=== PATIENT | female | born 1975 | race Caucasian/White ===

== ENCOUNTER 2022-10-29 00:30 | Inpatient (IN) | payer SELFPAY ==
[2022-10-29] VITALS (51 sets, daily range): BP systolic 97–145; BP diastolic 47–91; PULSE 70–97; RESP 16–20; TEMP 35.9–37.1; O2SAT 94–100; BMI 32.5; BMI 31.6
--- NOTE | 2022-10-29 01:00 | ED_ITS ---
HPI - General Adult General Chief complaint: Shortness of Breath/Dyspnea Stated complaint: shortness of breath Time Seen by Provider: 10/29/22 00:59 History of Present Illness HPI narrative: Pt aox4, ABCs intact. Patient arrives for evaluation of shortness of breath that has progressed over the past couple of weeks . 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 Upon ambulation patient starts to become short of breath. When she goes from laying to sitting up patient becomes dizzy. Patient also having pain under her left breast. 47-year-old woman presenting to the emergency department apparently on advice of an PAYMENT ANALYST friend and ?my old man?, for concern of increasing shortness of breath particularly with exertion. Over the last week or so has found herself increasingly short of breath by the time she walks 50 ft. That distance has shortened and now was alarmed her today was directly with movement became short of breath. She does smoke couple packs of [place] daily. Has smoked for about 30 years. She gets lightheaded now when she goes from lying to sitting position. Has been experiencing some chest pressure on exertion along with the shortness of breath. Not so much of pain she says. Then resolves to feeling a sensation of tightness maybe like a hug. She does have some swelling in her legs that occurs intermittently in different locations. Some of this is related to bad right knee in which she has had a few surgeries. 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 On exam I do note a murmur. She has not noted a cardiac murmur prior. No fever. No new cough. Related Data Previous Rx's Medication Instructions Recorded ferrous sulfate 325 mg (65 mg 325 mg PO DAILY #30 tabs 10/30/22 iron) tablet omeprazole 20 mg capsule,delayed 20 mg PO BID #60 caps 10/30/22 release Allergies Allergy/AdvReac Type Severity Reaction Status Date / Time morphine Allergy Verified 10/29/22 02:02 Review of Systems Status of ROS: Reports: 6 or more systems reviewed and unremarkable except as noted in History and below PFSH PFSH Medical History Microcytic anemia ?D50.9 - Iron deficiency anemia, unspecified (ICD-10) Tobacco use ?Z72.0 - Tobacco use (ICD-10) Surgical History (Updated 10/29/22 @ 10:21 by Isamar Godinez MD) Hx of cholecystectomy ?Z90.49 - Acquired absence of other specified parts of digestive tract (ICD- 10) History of knee surgery ?Z98.890 - Other specified postprocedural states (ICD-10) H/O hysterectomy with oophorectomy Family History (Updated 10/29/22 @ 10:20 by Isamar Godinez MD) Other Breast cancer Social History (Updated 10/29/22 @ 10:12 by Isamar Godinez MD) Narrative: Patient's home base is in [place], although she primarily lives in her truck on the road. Her partner is in [place]. She has 3 children. She smokes approximately 2 packs per day of cigarettes, also vapes. No alcohol use. Typically drinks 6-10 20oz bottles of Mountain Dew per day, recently transitioned to sweet tea. What is your current living situation?: I presently have a place to live Problems where you live: no known problems Problems where you live details: N/A In the past 12 months, utilities in danger of being shut off: no In the past 12 mos, have been you worried that your food would run out before you had money to buy more?: never true In the past 12 mos, the food you bought just didn't last and you didn't have money to buy more?: never true Highest level of school completed/degree received: Bachelor's degree Smoking Status: Heavy tobacco smoker What tobacco products do you use: cigarettes Smoking packs per day: 2 Smoking cigarettes per day: 40.0 Smoking quit date/years: >15 years ago and pipe Do you use any of these nicotine containing products: None Second hand tobacco smoke exposure: Yes How often do you have a drink containing alcohol: never AUDIT-C Alcohol total score: 0 Non-prescribed substance use: denies use Caffeine: No How often does anyone, including family, friends and others, physically hurt you : never How often does anyone, including family, friends and others, insult or talk down to you: never How often does anyone, including family, friends and others, threaten you with harm: never How often does anyone, including family, friends and others, scream or curse at you: sometimes service: No Exam Narrative: Exam Narrative: Pleasant. Slightly gravelly voice consistent with smoking. Small cigarette smoke. Skin is warm and dry. Pale. Lower extremities at this time are without edema. Extremities are well perfused. She is moving all extremities without difficulty. Lungs appear to be clear. While breathing with this exam she appears to become lightheaded. I do not appreciate JVD. Cranial nerves 2-12 are intact. Heart in a regular rate and rhythm. Has a mid systolic murmur loudest at the left sternal border. 2/6. Abdomen is soft and nontender. Pain is not reproducible to palpation of the chest wall. Const: Vital Signs, click to edit/add: Vital Signs - 24 hr 10/29/22 00:41 10/29/22 00:57 10/29/22 01:00 Temperature 98.8 F Pulse Rate 84 84 Pulse Rate [Pulse Oximeter] 85 Respiratory Rate 20 Blood Pressure [Ri ght Upper Arm] 145/82 H Pulse Oximetry 99 97 97 Oxygen Delivery Me thod Room Air 10/29/22 01:15 10/29/22 01:30 10/29/22 01:55 Temperature Pulse Rate 89 80 83 Pulse Rate [Pulse Oximeter] Respiratory Rate Blood Pressure [Ri ght Upper Arm] Pulse Oximetry 100 99 97 Oxygen Delivery Me thod Documenting provider has reviewed patient's vital signs: yes Course Course Hospital Course: Cristine is a very pleasant 47-year-old female who presented to the hospital for dyspnea, found to have a hemoglobin of 4.6. She received total of 4 units PRBCs, felt significantly improved, hemoglobin 9.2 upon discharge. EGD during stay exhibited gastritis (likely iatrogenic; patient on high doses of ASA and Ibuprofen prior to admission). Patient takes high doses of NSAIDs for R knee pain (history of injuries). Requested injection during stay, as she will not be able to take NSAIDs upon discharge. After consent obtained, lateral aspect of right knee was injected under sterile conditions with 40mg of Kenalog, 1mL of 1% lidocaine, 1 mL of 0.25% bupivacaine; patient tolerated procedure well. 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 We discussed the importance of finding a PCP to monitor her hemoglobin. She will be discharged on omeprazole and supplemental iron, return precautions reviewed. Patient verbalized understanding and is appropriate for discharge on 10/30/22. Vital Signs Vital signs: Initial Vital Signs Temperature 98.8 F 10/29/22 00:41 Temperature Source Temporal Artery Scan 10/29/22 00:41 Pulse Rate 85 10/29/22 00:41 Pulse Rhythm Regular 10/29/22 00:41 Respiratory Rate 20 10/29/22 00:41 Blood Pressure 145/82 H 10/29/22 00:41 Blood Pressure Mean 103 10/29/22 00:41 Pulse Oximetry 99 10/29/22 00:41 Oxygen Delivery Method Room Air 10/29/22 00:41 Vital Signs Temperature 98.8 F 10/29/22 00:41 Pulse Rate 85 10/29/22 00:41 Respiratory Rate 20 10/29/22 00:41 Blood Pressure 145/82 H 10/29/22 00:41 Pulse Oximetry 99 10/29/22 00:41 Oxygen Delivery Method Room Air 10/29/22 00:41 Temperature 99.0 F 10/30/22 10:52 Pulse Rate 88 10/30/22 10:52 Respiratory Rate 16 10/30/22 10:52 Blood Pressure 112/64 10/30/22 10:52 Pulse Oximetry 94 10/30/22 10:52 Oxygen Delivery Method Room Air 10/30/22 10:52 Medical Decision Making MDM Narrative Medical decision making narrative: Differential of concern includes pulmonary embolus, heart failure, pneumonia, marked anemia, pneumothorax, cancerous condition, dic. Will be collecting labs and imaging chest. I think warrants that as first-line already. Will receive normal saline IV as well. 0140 -- hemoglobin returns at 4.6 will be type and cross and give [address] through abdomen Anemia is microcytic. Denies melena or hematochezia. No history of heavy menstrual bleeding as is status post hysterectomy. Apparently went into surgery she says for an ovarian cyst and this resulted also in hysterectomy. She says is missing both ovaries. She is unclear why. No known history of renal disease. IV contrasted CT chest abdomen pelvis with out evidence of acute disease. Demonstrates hiatal hernia and diverticulosis. Will be admitting for further investigation, blood product. Lab Data Lab results reviewed: Yes I reviewed the patient's lab results Labs: Lab Results 10/29/22 10/29/22 10/29/22 Range/Units 00:50 00:50 00:50 WBC 5.34 (4.50-11.00) K/uL RBC 3.20 L (4.00-5.20) m/uL Hgb 4.6 L* (12.0-16.0) gm/dL Hct 19.0 L (33.0-51.0) % MCV 59 L (80-100) fL MCH 14 L (26-34) pg MCHC 24 L (32-36) gm/dL RDW Coeff of Flex 19.1 H (11.5-15.5) % Plt Count 332 (140-440) K/uL Neut % (Auto) 66.9 (42.0-72.0) % Lymph % (Auto) 23.4 (20-44) % [place] % (Auto) 6.7 (0.0-11.0) % Eos % (Auto) 1.5 (0.0-7.0) % Baso % (Auto) 1.1 (0.0-3.0) % Neut # (Auto) 3.57 (1.7-7.0) K/uL Lymph # (Auto) 1.25 (0.90-2.90) K/uL [place] # (Auto) 0.40 (0.00-0.90) K/UL Eos # (Auto) 0.08 (0.00-0.50) K/uL Baso # (Auto) 0.06 (0.00-0.30) K/uL Abs Immat Gran (auto) 0.02 (0.00-0.30) K/uL Imm/Tot Granulo (auto) 0.4 % Diff Slide Review Acceptable Review (Acceptable) Absolute Retic 0.06 (0.03-0.08) # Percent Retic 1.6 (0.5-2.0) % Immature Retic Fraction 23.4 H (3.0-15.9) % Retic Hgb Equivalent 11.0 L (29.0-35.0) pg D-Dimer Quant (PE/DVT) 0.32 (0.00-0.50) ug/ml Sodium 137 (135-149) mmol/L Potassium 3.2 L (3.6-5.1) mmol/L Chloride 107 (96-114) mmol/L Carbon Dioxide 20 (20-32) mmol/L BUN 18 (5-24) mg/dL Creatinine 0.9 (0.5-1.5) mg/dL Estimated Creat Clear 80.76 Estimated GFR 79 ml/min Glucose 131 H (60-115) mg/dL Calcium 8.6 (8.4-10.6) mg/dL Iron Cancelled 17 L TIBC 467 (265-497) ug/dL % Saturation 4 L (20-50) % [id number], Serum 340 (200-360) mg/dL Ferritin Cancelled 2.6 L Total Bilirubin 0.3 (0.1-1.5) mg/dL Direct Bilirubin 0.0 (0.0-0.5) mg/dL AST 19 (12-35) U/L ALT 12 (4-35) U/L Alkaline Phosphatase 98 (40-150) U/L Troponin I < 0.01 L (0.01-0.04) ng/mL C-Reactive Protein < 0.5 L (0.5-1.0) mg/dL NT-Pro-B Natriuret Pep 45 pg/mL Total Protein 7.0 (6.0-8.3) g/dL Albumin 4.2 (3.3-5.0) g/dL TSH 3.980 (0.270-4.20) uIU/mL Lab Acknowledgement Blood Type Antibody Screen Crossmatch (AHG) 10/29/22 10/29/22 10/29/22 Range/Units 02:00 02:00 02:00 WBC (4.50-11.00) K/uL RBC (4.00-5.20) m/uL Hgb (12.0-16.0) gm/dL Hct (33.0-51.0) % MCV (80-100) fL MCH (26-34) pg MCHC (32-36) gm/dL RDW Coeff of Flex (11.5-15.5) % Plt Count (140-440) K/uL Neut % (Auto) (42.0-72.0) % Lymph % (Auto) (20-44) % [place] % (Auto) (0.0-11.0) % Eos % (Auto) (0.0-7.0) % Baso % (Auto) (0.0-3.0) % Neut # (Auto) (1.7-7.0) K/uL Lymph # (Auto) (0.90-2.90) K/uL [place] # (Auto) (0.00-0.90) K/UL Eos # (Auto) (0.00-0.50) K/uL Baso # (Auto) (0.00-0.30) K/uL Abs Immat Gran (auto) (0.00-0.30) K/uL Imm/Tot Granulo (auto) % Diff Slide Review (Acceptable) Absolute Retic (0.03-0.08) # Percent Retic (0.5-2.0) % Immature Retic Fraction (3.0-15.9) % Retic Hgb Equivalent (29.0-35.0) pg D-Dimer Quant (PE/DVT) (0.00-0.50) ug/ml Sodium (135-149) mmol/L Potassium (3.6-5.1) mmol/L Chloride (96-114) mmol/L Carbon Dioxide (20-32) mmol/L BUN (5-24) mg/dL Creatinine (0.5-1.5) mg/dL Estimated Creat Clear Estimated GFR ml/min Glucose (60-115) mg/dL Calcium (8.4-10.6) mg/dL Iron TIBC (265-497) ug/dL % Saturation (20-50) % Rths-8-Vdaluvybona, Serum (200-360) mg/dL Ferritin Total Bilirubin (0.1-1.5) mg/dL Direct Bilirubin (0.0-0.5) mg/dL AST (12-35) U/L ALT (4-35) U/L Alkaline Phosphatase (40-150) U/L Troponin I (0.01-0.04) ng/mL C-Reactive Protein (0.5-1.0) mg/dL NT-Pro-B Natriuret Pep pg/mL Total Protein (6.0-8.3) g/dL Albumin (3.3-5.0) g/dL TSH (0.270-4.20) uIU/mL Lab Acknowledgement Blood Type A Negative A Negative Antibody Screen NEGATIVE NEGATIVE Crossmatch (AHG) See Detail 10/29/22 10/29/22 Range/Units 02:00 03:52 WBC (4.50-11.00) K/uL RBC (4.00-5.20) m/uL Hgb (12.0-16.0) gm/dL Hct (33.0-51.0) % MCV (80-100) fL MCH (26-34) pg MCHC (32-36) gm/dL RDW Coeff of Flex (11.5-15.5) % Plt Count (140-440) K/uL Neut % (Auto) (42.0-72.0) % Lymph % (Auto) (20-44) % [place] % (Auto) (0.0-11.0) % Eos % (Auto) (0.0-7.0) % Baso % (Auto) (0.0-3.0) % Neut # (Auto) (1.7-7.0) K/uL Lymph # (Auto) (0.90-2.90) K/uL [place] # (Auto) (0.00-0.90) K/UL Eos # (Auto) (0.00-0.50) K/uL Baso # (Auto) (0.00-0.30) K/uL Abs Immat Gran (auto) (0.00-0.30) K/uL Imm/Tot Granulo (auto) % Diff Slide Review (Acceptable) Absolute Retic (0.03-0.08) # Percent Retic (0.5-2.0) % Immature Retic Fraction (3.0-15.9) % Retic Hgb Equivalent (29.0-35.0) pg D-Dimer Quant (PE/DVT) (0.00-0.50) ug/ml Sodium (135-149) mmol/L Potassium (3.6-5.1) mmol/L Chloride (96-114) mmol/L Carbon Dioxide (20-32) mmol/L BUN (5-24) mg/dL Creatinine (0.5-1.5) mg/dL Estimated Creat Clear Estimated GFR ml/min Glucose (60-115) mg/dL Calcium (8.4-10.6) mg/dL Iron TIBC (265-497) ug/dL % Saturation (20-50) % Tvud-4-Qbqzvccggmg, Serum (200-360) mg/dL Ferritin Total Bilirubin (0.1-1.5) mg/dL Direct Bilirubin (0.0-0.5) mg/dL AST (12-35) U/L ALT (4-35) U/L Alkaline Phosphatase (40-150) U/L Troponin I (0.01-0.04) ng/mL C-Reactive Protein (0.5-1.0) mg/dL NT-Pro-B Natriuret Pep pg/mL Total Protein (6.0-8.3) g/dL Albumin (3.3-5.0) g/dL TSH (0.270-4.20) uIU/mL Lab Acknowledgement Test Added Blood Type Antibody Screen Crossmatch (AHG) See Detail ECG Data Attestation: I personally reviewed and interpreted this ECG as follows: (Normal sinus rhythm rate of 91. No ischemic changes) Discharge Plan Discharge Clinical Impression: Severe anemia, Microcytic anemia Patient Disposition: Admitted As Observation Condition: Improved Activity Level: Activity as Tolerated Discharge Diet: Regular Diet Detail: acid-reflux friendly
--- NOTE | 2022-10-29 01:15 | CRLHL7_ITS ---
For Patients: As a result of the Century Cures Act, medical imaging exams and procedure reports are released immediately into your electronic medical record. You may view this report before your referring provider. If you have questions, please contact your health care provider. INDICATION: Dyspnea on exertion, left chest pressure, severe anemia TECHNIQUE: CT chest, abdomen and pelvis acquired with 95 cc Isovue 370 IV contrast. The chest CT was performed as a pulmonary embolism protocol. COMPARISON: None FINDINGS: Chest: Cardiovascular structures: Heart size is normal. Thoracic aorta and main pulmonary artery are normal in caliber. Mediastinum and andra: No mass or adenopathy. Large hiatal hernia. Calcified left hilar lymph nodes. Lungs: Calcified granuloma in the left lower lobe. Pleura and pericardium: No effusions. Chest wall and axilla: No mass or adenopathy. Bones: Mild dextroscoliosis. Abdomen and Pelvis: Liver: Unremarkable. Spleen: Unremarkable. Pancreas: Unremarkable. Gallbladder and bile ducts: S/p cholecystectomy. Adrenal glands: Unremarkable. Kidneys: Unremarkable. GI tract: Mild colonic diverticulosis. Appendix is normal. Vascular structures: Mild aortoiliac calcifications. Lymph nodes: Unremarkable. Miscellaneous: Unremarkable. No free air or significant free fluid. Pelvic Organs: Status post hysterectomy. Bones: Unremarkable for age. IMPRESSION: No pulmonary embolism or acute abnormality within the chest, abdomen, or pelvis. Moderate-sized hiatal hernia. Mild colonic diverticulosis. Status post hysterectomy and cholecystectomy. Please note that all CT scans at this facility use dose modulation, iterative reconstruction, and/or weight-based dosing when appropriate to reduce radiation dose to as low as reasonably achievable. Dictated by Elmira Arshad MD @ 10/29/2022 3:24:40 AM (Electronically Signed)
[2022-10-29 01:27] LABS: Basophils Absolute Auto 0.06 K/uL (0.00-0.30); Basophils Percent Auto 1.1 % (0.0-3.0); Eosinophils Absolute Auto 0.08 K/uL (0.00-0.50); Eosinophils Percent Auto 1.5 % (0.0-7.0); Immature Granulocytes Abs Auto 0.02 K/uL (0.00-0.30); Immature Granulocytes Pct Auto 0.4 %; Lymphocytes Absolute Auto 1.25 K/uL (0.90-2.90); Lymphocytes Percent Auto 23.4 % (20-44); Mean Corpuscular HGB Conc 24 gm/dL (32-36); Mean Corpuscular Hemoglobin 14 pg (26-34); Mean Corpuscular Volume 59 fL (80-100); Monocytes Percent Auto 6.7 % (0.0-11.0); Neutrophils Absolute Auto 3.57 K/uL (1.7-7.0); Neutrophils Percent Auto 66.9 % (42.0-72.0); Platelet Count* 332 K/uL (140-440); RDW Coefficient of Variation % 19.1 % (11.5-15.5); White Blood Count* 5.34 K/uL (4.50-11.00)
[2022-10-29 01:31] LABS: Hemoglobin* 4.6 gm/dL (12.0-16.0); Slide Review Reflex Yes
[2022-10-29 01:42] LABS: Chloride* 107 mmol/L (96-114); Potassium* 3.2 mmol/L (3.6-5.1); Sodium* 137 mmol/L (135-149)
[2022-10-29 01:43] LABS: Albumin* 4.2 g/dL (3.3-5.0)
[2022-10-29 01:44] LABS: Creatinine* 0.9 mg/dL (0.5-1.5); Est. Creatinine Clearance* 80.76; Estimated Glomerular Filt Rate 79 ml/min
[2022-10-29 01:45] LABS: Blood Urea Nitrogen* 18 mg/dL (5-24); Carbon Dioxide* 20 mmol/L (20-32); Glucose* 131 mg/dL (60-115)
[2022-10-29 01:46] LABS: Alanine Aminotransferase* 12 U/L (4-35); Alkaline Phosphatase* 98 U/L (40-150); Aspartate Amino Transferase* 19 U/L (12-35); Bilirubin Total* 0.3 mg/dL (0.1-1.5); Calcium* 8.6 mg/dL (8.4-10.6); D Dimer Quantitative* 0.32 ug/ml (0.00-0.50); Slide Review Acceptable Review (Acceptable)
[2022-10-29 01:48] LABS: C Reactive Protein* < 0.5 mg/dL (0.5-1.0)
[2022-10-29] MEDS: 0.9 % SODIUM CHLORIDE 1000 ml 1,000 ML IV (01:50)
[2022-10-29 02:02] LABS: NT Pro B Type NatriureticPept* 45 pg/mL; Troponin I* < 0.01 ng/mL (0.01-0.04)
[2022-10-29] MEDS: LORazepam 2 MG/ML inj 0.5 MG IVP (04:05)
[2022-10-29] MEDS: NICOTINE 21 MG PATCH 1 PATCH TRANSDERMA (04:10)
[2022-10-29] MEDS: 0.9 % SODIUM CHLORIDE 250 ml IV ×2 (04:30→10:55)
[2022-10-29 04:35] LABS: Iron* 17 ug/dL (37-170)
[2022-10-29 04:44] LABS: Percent Iron Saturation 4 % (20-50); Total Iron Binding Capacity 467 ug/dL (265-497)
--- NOTE | 2022-10-29 05:07 | ED.NURSE ---
nurse to nurse report given to davon. Patient going to room 261
[2022-10-29 05:16] LABS: Ferritin* 2.6 ng/mL (6.24-137.0)
--- NOTE | 2022-10-29 05:52 | P.IMCN_ITS ---
Date of Consult Consult date: 10/29/22 Primary Care Provider: Not a Local Provider Consult Narrative Narrative: Elieser Claudioist eHospitalist was contacted with request of consultation on Summer page. 47-year-old lady with no significant past medical history who presented to the hospital complaining of progressive exertional shortness of breath, exertional palpitations and feeling of chest tightness for the last 2 weeks. She has history of hysterectomy for unknown reason 27 years ago. She denied any history of recurrent anemias or blood transfusions. She denies any melena, hematochezia or hematemesis. Home Medications: see EMR Pertinent Medical History: See EMR Pertinent Social History: See EMR Exam (performed via interactive video with assistance of bedside nurse; Kelvin): General: alert, cooperative, no acute distress HEENT: Supple. Pale. Lungs: clear to auscultation bilaterally without crackle or wheeze CV: regular rate and rhythm without loud murmur rub or gallop Abd: denies tenderness and does not exhibit signs of pain with palpation done by bedside nurse Ext: no pitting edema noted Skin: no rashes, bruises or lesions. Neuro: alert, oriented x 3. facial muscles grossly intact, moves all extremities without any significant focal deficit appreciated by nurse Labs and imaging were reviewed. Assessment and Plan: Symptomatic anemia R/O Acute blood loss anemia Microcytic anemia Patient appears to have significant symptomatic anemia No clear etiology at this time. ED provider ordered CT chest, abdomen and pelvis which did not show any major abnormalities Patient had her hysterectomy done many years ago and she does not have any abnormal bleeding Patient should undergo EGD and colonoscopy as soon as possible to rule out any source of bleeding Patient should have celiac disease work-up Iron profile studies were ordered in ED prior to transfusion, awaiting results Patient will benefit from IV iron therapy prior to discharge ED provider ordered 2 units of packed RBCs, will continue for now Further plan as per endoscopic results Thank you for including Elieser Rodriguez in the patients care. This service is available for further assistance as requested by your care team by calling [phone]. [facility] Social History Smoking Status: Current every day smoker What tobacco products do you use: cigarettes Smoking packs per day: 2 Smoking cigarettes per day: 40.0 Do you use any of these nicotine containing products: None Second hand tobacco smoke exposure: Yes Non-prescribed substance use: denies use Meds Home Medications and Allergies Home Medications Medication Instructions Recorded Confirmed Type aspirin 325 mg capsule 325 mg PO DAILY 10/29/22 10/29/22 History ibuprofen 200 mg tablet (Advil) 200 mg PO Q6-8H PRN 10/29/22 10/29/22 History Allergies Allergy/AdvReac Type Severity Reaction Status Date / Time morphine Allergy Verified 10/29/22 02:02 Exam Const: Vital Signs, click to edit/add: Vital Signs - 24 hr 10/29/22 00:41 10/29/22 00:57 10/29/22 01:00 Temperature 98.8 F Pulse Rate 84 84 Pulse Rate [Pulse Oximeter] 85 Respiratory Rate 20 Blood Pressure Blood Pressure [Ri ght Upper Arm] 145/82 H Pulse Oximetry 99 97 97 Oxygen Delivery Me thod Room Air 10/29/22 01:14 10/29/22 01:15 10/29/22 01:30 Temperature Pulse Rate 89 80 Pulse Rate [Pulse Oximeter] Respiratory Rate Blood Pressure Blood Pressure [Ri ght Upper Arm] Pulse Oximetry 97 100 99 Oxygen Delivery Me thod 10/29/22 01:55 10/29/22 01:56 10/29/22 02:00 Temperature Pulse Rate 83 85 83 Pulse Rate [Pulse Oximeter] Respiratory Rate Blood Pressure 132/70 Blood Pressure [Ri ght Upper Arm] Pulse Oximetry 97 100 99 Oxygen Delivery Me thod 10/29/22 02:02 10/29/22 02:15 10/29/22 02:21 Temperature Pulse Rate 85 79 76 Pulse Rate [Pulse Oximeter] Respiratory Rate Blood Pressure 125/61 115/76 Blood Pressure [Ri ght Upper Arm] Pulse Oximetry 98 98 98 Oxygen Delivery Me thod 10/29/22 02:30 10/29/22 02:42 10/29/22 02:45 Temperature Pulse Rate 74 82 77 Pulse Rate [Pulse Oximeter] Respiratory Rate Blood Pressure 117/56 L Blood Pressure [Ri ght Upper Arm] Pulse Oximetry 96 100 100 Oxygen Delivery Me thod 10/29/22 03:00 10/29/22 03:01 10/29/22 03:15 Temperature Pulse Rate 77 76 75 Pulse Rate [Pulse Oximeter] Respiratory Rate Blood Pressure 107/59 L Blood Pressure [Ri ght Upper Arm] Pulse Oximetry 99 100 99 Oxygen Delivery Me thod 10/29/22 03:21 10/29/22 03:30 10/29/22 03:50 Temperature Pulse Rate 76 74 97 Pulse Rate [Pulse Oximeter] Respiratory Rate Blood Pressure 97/61 Blood Pressure [Ri ght Upper Arm] Pulse Oximetry 97 98 100 Oxygen Delivery Me thod 10/29/22 04:00 10/29/22 04:04 10/29/22 04:15 Temperature Pulse Rate 79 82 78 Pulse Rate [Pulse Oximeter] Respiratory Rate Blood Pressure Blood Pressure [Ri ght Upper Arm] Pulse Oximetry 98 98 96 Oxygen Delivery Me thod 10/29/22 04:26 10/29/22 04:28 10/29/22 04:30 Temperature 97.2 F L Pulse Rate 78 76 75 Pulse Rate [Pulse Oximeter] Respiratory Rate 20 Blood Pressure 128/62 128/62 Blood Pressure [Ri ght Upper Arm] Pulse Oximetry 98 98 95 Oxygen Delivery Me thod 10/29/22 04:45 10/29/22 04:49 10/29/22 04:50 Temperature 96.7 F L Pulse Rate 78 74 75 Pulse Rate [Pulse Oximeter] Respiratory Rate 20 Blood Pressure 120/62 120/62 Blood Pressure [Ri ght Upper Arm] Pulse Oximetry 95 96 95 Oxygen Delivery Me thod 10/29/22 05:00 10/29/22 05:32 Temperature Pulse Rate 73 Pulse Rate [Pulse Oximeter] Respiratory Rate 18 Blood Pressure Blood Pressure [Ri ght Upper Arm] Pulse Oximetry 94 99 Oxygen Delivery Me thod Room Air Labs Labs: Short CBC 10/29/22 Range/Units 00:50 WBC 5.34 (4.50-11.00) K/uL Hgb 4.6 L* (12.0-16.0) gm/dL Hct 19.0 L (33.0-51.0) % Plt Count 332 (140-440) K/uL BMP 10/29/22 00:50 Sodium 137 Potassium 3.2 L Chloride 107 Carbon Dioxide 20 BUN 18 Creatinine 0.9 Glucose 131 H Calcium 8.6 Cardiac Enzymes 10/29/22 Range/Units 00:50 Troponin I < 0.01 L (0.01-0.04) ng/mL Liver Function 10/29/22 Range/Units 00:50 Total Bilirubin 0.3 (0.1-1.5) mg/dL Direct Bilirubin 0.0 (0.0-0.5) mg/dL AST 19 (12-35) U/L ALT 12 (4-35) U/L Alkaline Phosphatase 98 (40-150) U/L Albumin 4.2 (3.3-5.0) g/dL
[2022-10-29 07:10] LABS: Immature Reticulocyte Fraction 23.4 % (3.0-15.9); Reticulocyte Percent 1.6 % (0.5-2.0); Reticulocytes Absolute 0.06 # (0.03-0.08)
--- NOTE | 2022-10-29 07:16 | PC.NURSE ---
Shift note: Pt arrived at the unit at 0515 on admission bed with blood transfusing at 150ml/hr. Alert and oriented on admission but very weak and dizzy. Vital signs checked were WNL. Pt ambulate independently in room. Blood transfusion continued and ended uneventfully at 0630. Lungs sound clear but had heart murmur. Pt lives in her truck according to her and depends mostly on snacks and fast foods. Nicotine patch at right shoulder.
[2022-10-29] MEDS: LORazepam 2 MG/ML inj 1 MG IVP ×3 (08:15→22:26)
[2022-10-29] MEDS: PANTOPRAZOLE SODIUM 40 MG INJ IVP (08:16)
--- NOTE | 2022-10-29 08:56 | PM.IMHP1 ---
Hospitalist- H&P: HPI History of Present Illness Date Seen: 10/29/22 Chief complaint: shortness of breath Narrative: Summer Bundy is a 47 year old female who presented to the emergency room last night for an approximate 2 week history of dyspnea. She had started noticing dyspnea on exertion, wondered if something was happening with her heart, so she started 325 mg of aspirin BID. Her dyspnea continued to worsen, and she also noted occasional palpitations/tachycardia. She had no chest pain with these symptoms. She has rare nausea, no epigastric burning. 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 ER course and findings: - Hgb 4.6, MCV 59, normal platelets and WBC. Normal BUN - K of 3.2 - Negative troponin, reassuring EKG - no acute findings on CT of C/A/P - reassuring VS Blood transfusion initiated, patient given IV PPI, admitted to the floor by E-Hospitalist. This morning, patient notes + anxiety (worsened by extra staff in room, nicotine withdrawal, sleep deprivation, needle phobia). Cristine does not remember having anemia previously. She has never had an endoscopy or colonoscopy. She has not had any melena or BRBPR. She has no family history of colon cancer. She is s/p remote hysterectomy + oophorectomy. Review of Systems Narrative: No significant weight changes. Does not follow any specific diet, eats red meat regularly. Intermittent hot flashes (thinks this is related to menopause - hysterectomy remotely). No skin rashes. No migratory arthralgias, often has R knee pain (but history of injury/surgery). No abdominal pain. 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 Her partner is in [place]. She has 3 children. She smokes approximately 2 packs per day of cigarettes, also vapes. No alcohol use. Typically drinks 6-10 20oz bottles of Mountain Dew per day, recently transitioned to sweet tea. What is your current living situation?: I presently have a place to live Problems where you live: no known problems Problems where you live details: N/A In the past 12 months, utilities in danger of being shut off: no In the past 12 mos, have been you worried that your food would run out before you had money to buy more?: never true In the past 12 mos, the food you bought just didn't last and you didn't have money to buy more?: never true Highest level of school completed/degree received: Bachelor's degree Smoking Status: Heavy tobacco smoker What tobacco products do you use: cigarettes Smoking packs per day: 2 Smoking cigarettes per day: 40.0 Smoking quit date/years: >15 years ago and pipe Do you use any of these nicotine containing products: None Second hand tobacco smoke exposure: Yes How often do you have a drink containing alcohol: never AUDIT-C Alcohol total score: 0 Non-prescribed substance use: denies use Caffeine: No How often does anyone, including family, friends and others, physically hurt you: never How often does anyone, including family, friends and others, insult or talk down to you: never How often does anyone, including family, friends and others, threaten you with harm: never How often does anyone, including family, friends and others, scream or curse at you: sometimes service: No Meds Home Medications and Allergies Home Medications Medication Instructions Recorded Confirmed Type aspirin 325 mg capsule 325 mg PO DAILY 10/29/22 10/29/22 History ibuprofen 200 mg tablet (Advil) 200 mg PO Q6-8H PRN 10/29/22 10/29/22 History Home Medication Comments: Patient has been taking 325 mg of Aspirin BID for the past 2 weeks (she thought her initial dyspnea was related to heart disease). For knee pain and generalized achiness, she takes 6-8 tablets of ibuprofen 2-3 times per day. Allergies Allergy/AdvReac Type Severity Reaction Status Date / Time morphine Allergy Verified 10/29/22 02:02 Exam Narrative: Exam Narrative: GEN: Alert and oriented, answering questions appropriately HEENT: PERRL and EOMIs bilaterally, + conjunctival pallor CV: RRR, soft systolic murmur without radiation R: LCTA bilaterally without concerning wheezing, air movement adequate Ab: soft, nondistended, no significant ttp Skin: No concerning skin lesions or rashes on exposed skin Neuro: Nonfocal Psych: Mildly tearful when discussing hospitalization Const: Vital Signs, click to edit/add: Vital Signs - 24 hr 10/29/22 00:41 10/29/22 00:57 10/29/22 01:00 Temperature 98.8 F Pulse Rate 84 84 Pulse Rate [Pulse Oximeter] 85 Pulse Rate [Right Pulse Oximeter] Respiratory Rate 20 Blood Pressure Blood Pressure [Ri ght Arm] Blood Pressure [Ri ght Upper Arm] 145/82 H Pulse Oximetry 99 97 [facility] 10/29/22 01:14 10/29/22 01:15 10/29/22 01:30 Temperature Pulse Rate 89 80 Pulse Rate [Pulse Oximeter] Pulse Rate [Right Pulse Oximeter] Respiratory Rate Blood Pressure Blood Pressure [Ri ght Arm] Blood Pressure [Ri ght Upper Arm] Pulse Oximetry 97 100 99 Oxygen Delivery [facility] 10/29/22 01:55 10/29/22 01:56 10/29/22 02:00 Temperature Pulse Rate 83 85 83 Pulse Rate [Pulse Oximeter] Pulse Rate [Right Pulse Oximeter] Respiratory Rate Blood Pressure 132/70 Blood Pressure [Ri ght Arm] Blood Pressure [Ri ght Upper Arm] Pulse Oximetry 97 100 99 [facility] 10/29/22 02:02 10/29/22 02:15 10/29/22 02:21 Temperature Pulse Rate 85 79 76 Pulse Rate [Pulse Oximeter] Pulse Rate [Right Pulse Oximeter] Respiratory Rate Blood Pressure 125/61 115/76 Blood Pressure [Ri ght Arm] Blood Pressure [Ri ght Upper Arm] Pulse Oximetry 98 98 98 [facility] 10/29/22 02:30 10/29/22 02:42 10/29/22 02:45 Temperature Pulse Rate 74 82 77 Pulse Rate [Pulse Oximeter] Pulse Rate [Right Pulse Oximeter] Respiratory Rate Blood Pressure 117/56 L Blood Pressure [Ri ght Arm] Blood Pressure [Ri ght Upper Arm] Pulse Oximetry 96 100 100 Oxygen Delivery [facility] 10/29/22 03:00 10/29/22 03:01 10/29/22 03:15 Temperature Pulse Rate 77 76 75 Pulse Rate [Pulse Oximeter] Pulse Rate [Right Pulse Oximeter] Respiratory Rate Blood Pressure 107/59 L Blood Pressure [Ri ght Arm] Blood Pressure [Ri ght Upper Arm] Pulse Oximetry 99 100 99 Oxygen Delivery [facility] 10/29/22 03:21 10/29/22 03:30 10/29/22 03:50 Temperature Pulse Rate 76 74 97 Pulse Rate [Pulse Oximeter] Pulse Rate [Right Pulse Oximeter] Respiratory Rate Blood Pressure 97/61 Blood Pressure [Ri ght Arm] Blood Pressure [Ri ght Upper Arm] Pulse Oximetry 97 98 100 Oxygen Delivery [facility] 10/29/22 04:00 10/29/22 04:04 10/29/22 04:15 Temperature Pulse Rate 79 82 78 Pulse Rate [Pulse Oximeter] Pulse Rate [Right Pulse Oximeter] Respiratory Rate Blood Pressure Blood Pressure [Ri ght Arm] Blood Pressure [Ri ght Upper Arm] Pulse Oximetry 98 98 96 Oxygen Delivery [facility] 10/29/22 04:26 10/29/22 04:28 10/29/22 04:30 Temperature 97.2 F L Pulse Rate 78 76 75 Pulse Rate [Pulse Oximeter] Pulse Rate [Right Pulse Oximeter] Respiratory Rate 20 Blood Pressure 128/62 128/62 Blood Pressure [Ri ght Arm] Blood Pressure [Ri ght Upper Arm] Pulse Oximetry 98 98 95 Oxygen Delivery [facility] 10/29/22 04:45 10/29/22 04:49 10/29/22 04:50 Temperature 96.7 F L Pulse Rate 78 74 75 Pulse Rate [Pulse Oximeter] Pulse Rate [Right Pulse Oximeter] Respiratory Rate 20 Blood Pressure 120/62 120/62 Blood Pressure [Ri ght Arm] Blood Pressure [Ri ght Upper Arm] Pulse Oximetry 95 96 95 Oxygen Delivery [facility] 10/29/22 05:00 10/29/22 05:32 10/29/22 05:32 Temperature 98.2 F Pulse Rate 73 Pulse Rate [Pulse Oximeter] Pulse Rate [Right Pulse Oximeter] 75 Respiratory Rate 18 18 Blood Pressure Blood Pressure [Ri ght Arm] 138/91 H Blood Pressure [Ri ght Upper Arm] Pulse Oximetry 94 99 99 [facility] Room Air 10/29/22 05:34 10/29/22 06:34 10/29/22 07:41 Temperature 98.2 F 98.4 F 98.7 F Pulse Rate 75 75 71 Pulse Rate [Pulse Oximeter] Pulse Rate [Right Pulse Oximeter] Respiratory Rate 18 18 18 Blood Pressure 138/91 H 130/56 L 118/51 L Blood Pressure [Ri ght Arm] Blood Pressure [Ri ght Upper Arm] Pulse Oximetry 99 99 99 [facility] - H&P: Result Labs Labs: Short CBC 10/29/22 Range/Units 00:50 WBC 5.34 (4.50-11.00) K/uL Hgb 4.6 L* (12.0-16.0) gm/dL Hct 19.0 L (33.0-51.0) % Plt Count 332 (140-440) K/uL BMP 10/29/22 00:50 Sodium 137 Potassium 3.2 L Chloride 107 Carbon Dioxide 20 BUN 18 Creatinine 0.9 Glucose 131 H Calcium 8.6 Cardiac Enzymes 10/29/22 Range/Units 00:50 Troponin I < 0.01 L (0.01-0.04) ng/mL Liver Function 10/29/22 Range/Units 00:50 Total Bilirubin 0.3 (0.1-1.5) mg/dL Direct Bilirubin 0.0 (0.0-0.5) mg/dL AST 19 (12-35) U/L ALT 12 (4-35) U/L Alkaline Phosphatase 98 (40-150) U/L Albumin 4.2 (3.3-5.0) g/dL Assessment and Plan Assessment and plan (1) Severe anemia: Problem comment: - microcytic, concern for gastritis given recent overuse of NSAIDs + tobacco + caffeine - receiving blood transfusions (on 2nd U), follow Hgb - EGD today - continue PPI Status: Acute (2) Tobacco use: Problem comment: - patch, prn Ativan Status: Acute Plan - EGD, follow HGB - possibly discharge as early as tomorrow pending EGD findings and clinical stability
--- NOTE | 2022-10-29 09:54 | REH.PT ---
PT/OT order cx per MD. Will conduct eval if requested in the future.
--- NOTE | 2022-10-29 10:14 | W.ANESCHARGE ---
Anesthesia Charges Start Date/Time Anesthesia Start Date: 10/29/22 Anesthesia Start Time: 12:30 Stop Date/Time Anesthesia Stop Date: 10/29/22 Anesthesia Stop Time: 12:58
[2022-10-29] MEDS: POTASSIUM CHLORIDE 10 MEQ, LIDOCAINE 1 % 1 ML in 0.9 % SODIUM CHLORIDE 100 ml 100 ML 106 MEQ IVPB (10:55)
--- NOTE | 2022-10-29 13:00 | W.ANESCHARGE ---
Anesthesia Charges Start Date/Time Anesthesia Start Date: 10/29/22 Anesthesia Start Time: 12:30 Stop Date/Time Anesthesia Stop Date: 10/29/22 Anesthesia Stop Time: 12:58
[2022-10-29 13:06] LABS: Hemoglobin* 6.9 gm/dL (12.0-16.0)
--- NOTE | 2022-10-29 15:09 | PM.EN ---
Chart Event Note Chart Event Note: EGD without complications lillie lesions in large hiatal hernia, nsaid gastropathy no further nsaids PPI hgb 6.9 after 2 units. will transfuse two more units patient comfortable without obvious GI bleeding.
[2022-10-29] MEDS: ACETAMINOPHEN 325 MG TABLET PO (17:56)
[2022-10-29] MEDS: MELATONIN 3 MG TABLET PO (19:01)
--- NOTE | 2022-10-29 19:36 | PC.NURSE ---
Nursing Care Hours: [id number] Pt this shift anxious and crying in morning d/t being overwhelmed by multiple staff entering room and lab coming to draw blood. Pt worried about bruising from getting poked too many times. 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 Pt shared with entry writer that she is not a people person and prefers to be alone. Also does not like to be touched. Staff encouraged pt that we will do our best to respect those wishes but explained the importance of certain exams and tests. See behavior note for further information. Pt completed EGD and was found to have 5 ulcers, not actively bleeding. Pt reported to staff that she takes large amounts at a time of Ibuprofen and Aspirin for her R knee pain. Pt educated on negative side effects of NSAIDs and diet on gastric lining and the increased risk of bleeding. Pt has concerns now about taking any medications due to not knowing how it will effect her body. Pt educated on proper use of NSAIDs and alternating with other forms like acetaminophen. Printed education on gastric ulcers and anemia and diet given to pt. Nutrition consult ordered for tomorrow. Pt has been stable on RA, VSS. 1 unit of blood given in morning and 2 given at end of shift. VSS, no SS of negative reaction. Tele NSR. Pt independent in room.
[2022-10-29] MEDS: OMEPRAZOLE 20 MG CAPSULE DR PO (21:53)
[2022-10-29] MEDS: SODIUM CHLORIDE 0.9 % (FLUSH) 10 ML SYRINGE 5 ML IVF (22:07)
[2022-10-30 03:00] VITALS: BP 117/72; PULSE 59; RESP 16; TEMP 36.4; O2SAT 96
[2022-10-30] MEDS: NICOTINE 21 MG PATCH 1 PATCH TRANSDERMA (03:12)
[2022-10-30] MEDS: LORazepam 2 MG/ML inj 1 MG IVP (05:49)
--- NOTE | 2022-10-30 06:02 | PC.NURSE ---
End of Shift: Pt AO throughout shift, pleasant and cooperative. Reports feeling anxious when around too many people. Pt requested PRN ativan before HS and again before lab draw this AM. Anxiety well-controlled with PRN ativan. Pt denies pain, reports some discomfort in right knee but states it is chronic from a softball injury during childhood. Pt reports taking handfuls of ibuprofen daily ranging between 6-12 tablets/capsules twice per day and proceeded to pull the bottles from her purse and handed them to me stating they were no longer good for her and she did not need or want them. RN gave bottles to Charge Nurse. VS remained stable throughout shift. Pt took a shower and stated she felt much better after. Ambulatory independent in room, no BM, continent with bladder.
[2022-10-30 06:47] LABS: Basophils Absolute Auto 0.07 K/uL (0.00-0.30); Basophils Percent Auto 1.1 % (0.0-3.0); Eosinophils Absolute Auto 0.12 K/uL (0.00-0.50); Eosinophils Percent Auto 1.9 % (0.0-7.0); Hemoglobin* 9.7 gm/dL (12.0-16.0); Immature Granulocytes Abs Auto 0.01 K/uL (0.00-0.30); Immature Granulocytes Pct Auto 0.2 %; Lymphocytes Absolute Auto 1.71 K/uL (0.90-2.90); Lymphocytes Percent Auto 27.5 % (20-44); Mean Corpuscular HGB Conc 29 gm/dL (32-36); Mean Corpuscular Hemoglobin 21 pg (26-34); Mean Corpuscular Volume 70 fL (80-100); Monocytes Percent Auto 6.9 % (0.0-11.0); Neutrophils Absolute Auto 3.87 K/uL (1.7-7.0); Neutrophils Percent Auto 62.4 % (42.0-72.0); Platelet Count* 289 K/uL (140-440); RDW Coefficient of Variation % 27.2 % (11.5-15.5); Red Blood Count 4.69 m/uL (4.00-5.20); White Blood Count* 6.21 K/uL (4.50-11.00)
[2022-10-30 06:54] LABS: Slide Review Reflex Yes
[2022-10-30 07:00] VITALS: BP 132/78; PULSE 75; RESP 16; TEMP 37.3; O2SAT 97
[2022-10-30 07:01] LABS: Albumin* 3.7 g/dL (3.3-5.0); Chloride* 107 mmol/L (96-114); Potassium* 3.7 mmol/L (3.6-5.1); Sodium* 139 mmol/L (135-149)
[2022-10-30 07:03] LABS: Bilirubin Total* 0.8 mg/dL (0.1-1.5); Creatinine* 0.8 mg/dL (0.5-1.5); Est. Creatinine Clearance* 90.85; Estimated Glomerular Filt Rate 91 ml/min
[2022-10-30 07:04] LABS: Alanine Aminotransferase* 11 U/L (4-35); Alkaline Phosphatase* 83 U/L (40-150); Aspartate Amino Transferase* 18 U/L (12-35); Blood Urea Nitrogen* 12 mg/dL (5-24); Calcium* 8.6 mg/dL (8.4-10.6); Carbon Dioxide* 26 mmol/L (20-32); Glucose* 74 mg/dL (60-115); Total Protein* 6.3 g/dL (6.0-8.3)
[2022-10-30 07:52] VITALS: PULSE 68
[2022-10-30] MEDS: OMEPRAZOLE 20 MG CAPSULE DR PO (08:11)
[2022-10-30 08:12] LABS: Slide Review Acceptable Review (Acceptable)
[2022-10-30] MEDS: SODIUM CHLORIDE 0.9 % (FLUSH) 10 ML SYRINGE 5 ML IVF (08:12)
--- NOTE | 2022-10-30 09:09 | PC.SOCIAL ---
Addendum entered by MELISSA Fitzgerald 10/30/22 11:57: A patient financial assistance application was left with pt. as pt. has no insurance. 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 will drive home to [place].
[2022-10-30 10:27] LABS: Transferrin 340 mg/dL (200-360)
[2022-10-30 10:52] VITALS: BP 112/64; PULSE 88; RESP 16; TEMP 37.2; O2SAT 94
--- NOTE | 2022-10-30 11:17 | NUTR.NU ---
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 RDN also with verbal MD consult for iron rich foods for anemia and low fiber foods for gastritis. Patient ate 100% of breakfast this morning per cone tender and reports a good appetite. Patient was accepting of diet education. RDN reviewed healthy snack options to eat on the go, healthier alternatives for snacks and meals at gas stations or fast foods. Discussed low fiber diet, foods to include, and foods to limit/avoid with duration per MD recommendation. RD also reviewed iron rich foods and ways to increase iron intake and absorption of iron. Questions were appropriate and answered. Printed handouts were provided that support discussion and education on healthy snacks, iron rich foods, low fiber foods, and sample menus. RDN contact information provided and encouraged patient to call with questions. RDN to follow up as needed.
--- NOTE | 2022-10-30 11:36 | PM.DS1 ---
DS: Providers Provider Date Seen: 10/30/22 Date of admission: 10/29/22 07:17 Primary care physician: Not a Local Provider Admitting Clinician: Butch Dickens MD Attending Physician on discharge: Isamar Godinez MD Date of Discharge: 10/30/22 DS: Diagnosis Discharge Diagnosis (1) Gastritis: Status: Acute Problem details: - noted on 10/29 EGD - likely iatrogenic (was on 325mg ASA BID and >3000mg of Ibuprofen daily prior to admission) (2) Severe anemia: Status: Acute Problem details: - microcytic, concern for gastritis given recent overuse of NSAIDs + tobacco + caffeine - received 4U of PRBCs during stay, discharge Hgb 9.2 and patient feeling significantly better upon d/c - EGD exhibited gastritis - continue PPI upon discharge (3) Right knee pain: Status: Acute Problem details: - history of previous injury, source of pain for Ibuprofen use - steroid injection performed prior to discharge, discussed alternative pain medication options DS: Summary Hospital Course Hospital Course: Cristine is a very pleasant 47-year-old female who presented to the hospital for dyspnea, found to have a hemoglobin of 4.6. She received total of 4 units PRBCs, felt significantly improved, hemoglobin 9.2 upon discharge. EGD during stay exhibited gastritis (likely iatrogenic; patient on high doses of ASA and Ibuprofen prior to admission). Patient takes high doses of NSAIDs for R knee pain (history of injuries). Requested injection during stay, as she will not be able to take NSAIDs upon discharge. After consent obtained, lateral aspect of right knee was injected under sterile conditions with 40mg of Kenalog, 1mL of 1% lidocaine, 1 mL of 0.25% bupivacaine; patient tolerated procedure well. 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 We discussed the importance of finding a PCP to monitor her hemoglobin. She will be discharged on omeprazole and supplemental iron, return precautions reviewed. Patient verbalized understanding and is appropriate for discharge on 10/30/22. Status at Discharge Functional status at discharge: independent ambulation Overall status at discharge: patient is back to baseline Time Spent with Patient Time attestation: Total time spent providing and/or coordinating discharge services: Time spent: Greater than 30 minutes Specific discharge activities: Medication reconciliation, Patient Education Exam Narrative: Exam Narrative: GEN: Alert and oriented, nontoxic in appearance, appears much more animated than on admission HEENT: EOMIs bilaterally, no scleral icterus CV: RRR, murmur from admission is no longer auscultated today R: LCTA bilaterally without tachypnea or wheezing, air movement adequate Ext: wwp, no concerning edema; small effusion noted on right knee Skin: No concerning skin lesions or rashes on exposed skin Neuro: Nonfocal Psych: Appropriate Const: Vital Signs, click to edit/add: Vital Signs - 24 hr 10/29/22 14:51 10/29/22 15:00 10/29/22 15:06 Temperature 97.5 F L 97.5 F L Pulse Rate 76 76 Pulse Rate [Right Pulse Oximeter] 71 Respiratory Rate 18 18 18 Blood Pressure 103/86 103/86 Blood Pressure [Ri ght Arm] Pulse Oximetry 98 98 Oxygen Delivery Me thod 10/29/22 15:20 10/29/22 16:30 10/29/22 18:28 Temperature 98.6 F 98.6 F 98.6 F Pulse Rate 73 73 85 Pulse Rate [Right Pulse Oximeter] Respiratory Rate 18 18 18 Blood Pressure 114/47 L 121/64 116/79 Blood Pressure [Ri ght Arm] Pulse Oximetry 98 97 99 Oxygen Delivery Me thod 10/29/22 18:45 10/29/22 19:00 10/29/22 19:45 Temperature 98.2 F 97.5 F L 98.0 F Pulse Rate 82 83 Pulse Rate [Right Pulse Oximeter] 78 Respiratory Rate 18 20 18 Blood Pressure 139/73 112/70 Blood Pressure [Ri ght Arm] 130/73 Pulse Oximetry 96 98 99 Oxygen Delivery Me od Room Air 10/29/22 20:20 10/29/22 23:00 10/29/22 23:00 Temperature 98.4 F 97.0 F L Pulse Rate 81 Pulse Rate [Right Pulse Oximeter] 78 70 Respiratory Rate 18 18 16 Blood Pressure 126/67 Blood Pressure [Ri ght Arm] 120/71 Pulse Oximetry 98 96 Oxygen Delivery Me od Room Air 10/29/22 23:12 10/30/22 03:00 10/30/22 07:00 Temperature 97.5 F L 99.1 F Pulse Rate 70 Pulse Rate [Right Pulse Oximeter] 59 L 75 Respiratory Rate 16 16 Blood Pressure Blood Pressure [Ri ght Arm] 117/72 132/78 Pulse Oximetry 96 97 Oxygen Delivery Me thod Room Air Room Air 10/30/22 07:52 10/30/22 10:52 Temperature 99.0 F Pulse Rate 68 Pulse Rate [Right Pulse Oximeter] 88 Respiratory Rate 16 Blood Pressure Blood Pressure [Ri ght Arm] 112/64 Pulse Oximetry 94 Oxygen Delivery Me thod Room Air DS: Data Data Completed and Pending Labs on day of discharge: Labs from last 24 hours 10/30/22 10/29/22 10/29/22 06:01 12:48 02:00 WBC 6.21 RBC 4.69 Hgb 9.7 L 6.9 L* Hct 33.0 MCV 70 L MCH 21 L MCHC 29 L RDW Coeff of Flex 27.2 H Plt Count 289 Neut % (Auto) 62.4 Lymph % (Auto) 27.5 [place] % (Auto) 6.9 Eos % (Auto) 1.9 Baso % (Auto) 1.1 Neut # (Auto) 3.87 Lymph # (Auto) 1.71 [place] # (Auto) 0.40 Eos # (Auto) 0.12 Baso # (Auto) 0.07 Abs Immat Gran (auto) 0.01 Imm/Tot Granulo (auto) 0.2 Diff Slide Review Acceptable Review Sodium 139 Potassium 3.7 Chloride 107 Carbon Dioxide 26 BUN 12 Creatinine 0.8 Estimated Creat Clear 90.85 Estimated GFR 91 Glucose 74 Calcium 8.6 [id number], Serum Total Bilirubin 0.8 AST 18 ALT 11 Alkaline Phosphatase 83 Total Protein 6.3 Albumin 3.7 Blood Type Antibody Screen Crossmatch ([facility]) See Detail 10/29/22 10/29/22 02:00 00:50 WBC RBC Hgb Hct MCV MCH MCHC RDW Coeff of Flex Plt Count Neut % (Auto) Lymph % (Auto) [place] % (Auto) Eos % (Auto) Baso % (Auto) Neut # (Auto) Lymph # (Auto) [place] # (Auto) Eos # (Auto) Baso # (Auto) Abs Immat Gran (auto) Imm/Tot Granulo (auto) Diff Slide Review Sodium Potassium Chloride Carbon Dioxide BUN Creatinine Estimated Creat Clear Estimated GFR Glucose Calcium [id number], Serum 340 Total Bilirubin AST ALT Alkaline Phosphatase Total Protein Albumin Blood Type A Negative Antibody Screen NEGATIVE Crossmatch ([facility]) See Detail Discharge Plan Discharge Disposition: Home, Self-Care Date of Admission: 10/29/22 07:17 Attending Provider on Discharge: Isamar Godinez Primary Care Provider: Provider,Not a Local Condition: Improved Anticipated Discharge Date/Time: 10/30/22 11:06 Discharge Medications: New omeprazole 20 mg Capsule,Delayed Release(Dr/Ec) 20 mg PO BID Qty: 60 0RF ferrous sulfate 325 mg (65 mg iron) tablet 325 mg PO DAILY Qty: 30 0RF Discontinued ibuprofen [Advil] 200 mg tablet 200 mg PO Q6-8H PRN aspirin 325 mg capsule 325 mg PO DAILY Discharge Orders: Discharge Order (Routine); Ordered 10/30/22 Ordered By: Isamar Godinez Patient Education: Iron Supplements (By mouth), Omeprazole (By mouth), Anemia (DC) Additional Instructions: Your Hemoglobin was very low on admission, much better now after blood transfusions. Your anemia was because you had ulcers (from Aspirin and Ibuprofen use). NO MORE IBUPROFEN OR ASPIRIN. For pain, please buy over the counter Tylenol (Acetaminophen) 500mg tablets - you can take 2 of these every 4-6 hours (total of 8 tablet,s which is 4000mg/24 hours). For your ulcers, take OMEPRAZOLE 20mg twice/day until you have a followup to recheck your ulcers. It would also be a good idea to take IRON SUPPLEMENTATION (Ferrous Sulfate, 325mg daily) - you can buy this over the counter. This can cause constipation and dark stools (just to be aware). You should DEFINITELY find a primary doctor that you can see regularly. You need a repeat Hemoglobin in 4-6 weeks to make sure all remains stable. You need to be seen again with any new or worsening symptoms. Activity Level: Activity as Tolerated Discharge Diet: Regular Diet Detail: acid-reflux friendly Follow Up Appointments: Provider,Not a Local [Primary Care Provider] - Forms: [id number] Info Instructions
--- NOTE | 2022-10-30 13:41 | PC.NURSE ---
Patient discharged to home at 12:50pm. Patient ambulated to private vehicle. Up independent. Tolerating activity. Denies pain. Tolerating regular diet. Denies SOB. Patient discarded home medications as all meds contained discontinued medications. Patient verbalized understanding of discharge instructions. No further questions at this time.
== END 2022-10-30 12:50 | disposition home or self-care (01) | DRG 812 ==
LOC: ED 04:03 → MEDSURG 05:16
PROVIDERS: Family Medicine; Admitting Provider Family Medicine; Emergency Provider Family Medicine; Visit Provider Family Medicine
DX: D50.8 Other iron deficiency anemias (principal); K29.70 Gastritis, unspecified, without bleeding; K25.9 Gastric ulcer, unspecified as acute or chronic, without hemorrhage or perforation; T39.315A Adverse effect of propionic acid derivatives, initial encounter; T39.015A Adverse effect of aspirin, initial encounter; K44.9 Diaphragmatic hernia without obstruction or gangrene; F17.210 Nicotine dependence, cigarettes, uncomplicated; M25.561 Pain in right knee; Z79.1 Long term (current) use of non-steroidal anti-inflammatories (NSAID)
CPT/HCPCS: 00731; 36415; 36430; 43239; 71260; 74177; 80048; 80053; 80076; 82728; 83540; 83550; 83880; 84443; 84466; 84484; 85018; 85025; 85045; 85379; 86140; 86850; 86900; 86901; 86922; 88305; 93005; 94761; 99284; 99285; A9270; C9113; J2001; J2060; J2704; J3301; J3480; J3490; J7030; J7050; P9016; Q9967; S4990